=== PATIENT | female | born 2000 | race Caucasian/White ===

== ENCOUNTER 2022-08-09 08:14 | Emergency (ER) | payer BC, OTHER, SELFPAY ==
[2022-08-09 08:20] VITALS: BP 120/71; PULSE 94; RESP 18; TEMP 37.1; O2SAT 100
--- NOTE | 2022-08-09 08:33 | ED.URI ---
HPI - URI/Sore Throat General Chief Complaint: Upper Respiratory Infection Stated Complaint: thowing up, fever, cough Time Seen by Provider: 08/09/22 08:33 Source: patient, RN notes reviewed and old records reviewed Mode of arrival: ambulatory Limitations: no limitations History of Present Illness HPI Narrative: 22-year-old female who presents to express care with complaints of cough and runny nose since Monday(3 days). patient also reports that she has felt feverish, had chills and sweats. headaches, and has been throwing up also. Patient reports that she works at the [employer] and they have had a few cases of flu in their kids. Patient reports that she has been taking Advil cold and sinus for her symptoms. MD elicited complaint: cough, rhinorrhea and other (headaches, nausea and vomiting.) Onset (ago): day(s) (3) Pain scale (0-10): 2 Treatments prior to arrival: other (Advil cold and sinus) Related Data Home Medications Medication Instructions Recorded Confirmed No Home Medications 08/09/22 08/09/22 Allergies Allergy/AdvReac Type Severity Reaction Status Date / Time No Known Allergies Allergy Unverified 08/09/22 08:21 Review of Systems Review of Systems: CONSTITUTIONAL: Reports malaise, chills, sweats, or fever. EYES: Denies visual changes, redness, or discharge. ENT: Reports rhinorrhea, congestion, no sinus pain, no otalgia no sore throat. CARDIOVASCULAR: Denies chest pain, palpitations, or edema. RESPIRATORY: Reports cough.? Denies dyspnea. GASTROINTESTINAL: Denies abdominal pain, positive nausea, vomiting, no diarrhea. Denies any nausea or vomiting today SKIN: Denies rash or itching. MUSCULOSKELETAL: Denies myalgia. NEUROLOGIC: Positive for headache. All systems reviewed & are unremarkable except as noted in HPI and below [facility] Past Medical History Medical History (Updated 08/10/22 @ 00:01 by Vivek Medina) C. difficile diarrhea E. coli urinary tract infection Social History Social History (Updated 08/09/22 @ 08:46 by Salima Helton NP) Tobacco type: e-cigarettes/vaping Alcohol intake: current Alcohol use details: social Substance use: never Living arrangements: with friend(s) Occupation/Education: daycare Gender identity (if verbalized by the patient): Female Comments At time of signature, agree with nursing past medical, surgical, social and family history. There is no relevant family history pertinent to the presenting complaint Exam Narrative: GENERAL: Well-appearing, well-nourished, and in no acute distress. HEAD: Normocephalic EYES: PERRLA, conjunctivae clear ENT: Nares clear, turbinates edematous and erythematous, clear discharge. Mucous membranes moist. TM pearly allen with good light reflex bilaterally; no tragal tenderness. Oropharynx erythematous without lesions. Tonsils not enlarged and without exudate, no drooling, no hoarseness, no trismus, uvula midline. NECK: Supple. No lymphadenopathy CHEST: Clear to auscultation, breath sounds equal. No wheezing, rhonchi, rales, or stridor. No respiratory distress, speaks in full sentences.SAO2 100% on room air. HEART: Regular rate and rhythm. No murmur heard. SKIN: Warm, dry, no rash. NEURO: Alert and oriented x3. PSYCH: Normal mood and affect Course Course Emergency Course: Patient is aware of diagnosis, understands and agrees to treatment plan.? Anticipatory guidance given.? Patient agrees to follow-up as directed and is aware of reasons to seek care at the emergency department. Portions of this record may have been created with voice recognition software Level of Care: Express Care Visit Vital Signs Vital signs: Vital Signs Temperature 37.1 C 08/09/22 08:20 Pulse Rate 94 08/09/22 08:20 Respiratory Rate 18 08/09/22 08:20 Blood Pressure 120/71 08/09/22 08:20 Pulse Oximetry 100 08/09/22 08:20 Oxygen Delivery Room Air 08/09/22 08:20 Temperature 37.1 C 08/09/22
== END 2022-08-09 08:53 | disposition home or self-care (01) ==
PROVIDERS: Emergency Provider Registered Nurse
DX: J10.1 Influenza due to other identified influenza virus with other respiratory manifestations (principal)
CPT/HCPCS: 87804; 99213; G0463